=== PATIENT | female | born 1985 | race Caucasian/White ===

== ENCOUNTER 2024-06-27 03:38 | Inpatient (IN) | payer MEDICAID ==
[~2024-06-27] VITALS: Ht 170.2 cm; Wt 108.6 kg
[2024-06-27] VITALS (8 sets, daily range): BP systolic 114–122; BP diastolic 40–78; PULSE 58–77; RESP 14–19; TEMP 98–98.2; O2SAT 93–99
--- NOTE | 2024-06-27 03:55 | ED.PDOC ---
HPI Comments 38-year-old female who came to ER for chest pains. Patient does have history of hypertension but has poor compliance to her medications. States she was asleep but she woke up suddenly about 30 minutes ago due to sudden onset chest pains, sharp, substernal, constant, radiating to her back, associated with shortness of breath. Persistence of chest pains prompted patient to come to the ER. Chief Complaint: Chest pain Time Seen by MD: 03:54 Reviewed Notes: Nurses Notes Allergies: Coded Allergies: Lidocaine (Verified Allergy, Unknown, 06/27/24) Morphine (Verified Allergy, Unknown, 06/27/24) Penicillins (Verified Allergy, Unknown, 06/27/24) Information Source: Patient Mode of Arrival: Ambulatory Severity: Moderate Timing: Minutes Duration: Since onset Prehospital treatment: None Location: Substernal Radiation: Back Quality: Sharp, Stabbing Onset: At Rest Cardiac Risk Factors: HTN PE Risk Factors: None Associated Signs and Symptoms: SOB Past Medical History PAST MEDICAL HISTORY: Asthma, HTN Surgical History: Denies all surgeries GENERAL INSPECTOR History: Denies all GENERAL INSPECTOR Hx Family History Family History: Reviewed,noncontributory to illness Social History Smoker: Non-Smoker Alcohol: Denies ETOH Use Drugs: Denies Drug Use Lives In: Home Constitutional: denies: chills, diaphoresis, fatigue, fever, malaise, sweats, weakness, others EENTM: denies: blurred vision, double vision, ear bleeding, ear discharge, ear drainage, ear pain, ear ringing, eye pain, eye redness, hearing loss, mouth pain, mouth swelling, nasal discharge, nose bleeding, nose congestion, nose pain, photophobia, tearing, throat pain, throat swelling, voice changes, others Respiratory: denies: cough, hemoptysis, orthopnea, SOB at rest, shortness of breath, SOB with excertion, stridor, wheezing, others Cardiovascular: reports: chest pain; denies: dizzy spells, diaphoresis, Dyspnea on exertion, edema, irregular heart beat, left arm pain, lightheadedness, p alpitations, PND, syncope, others Gastrointestinal: denies: abdomen distended, abdominal pain, blood streaked bowels, constipated, diarrhea, dysphagia, difficulty swallowing, hematemesis, melena, nausea, poor appetite, poor fluid intake, rectal bleeding, rectal pain, vomiting, others Genitourinary: denies: abnormal vagina bleeding, burning, dyspareunia, dysuria, flank pain, frequency, hematuria, incontinence, pain, , vagina discharge, urgency, others Neurological: denies: dizziness, fainting, headache, left sided numbness, left sided weakness, numbness, paresthesia, pre-existing deficit, right sided numbness, right sided weakness, seizure, speech problems, tingling, tremors, weakness, others Musculoskeletal: reports: back pain; denies: gout, joint pain, joint swelling, muscle pain, muscle stiffness, neck pain, others Integumetry: denies: bruises, change in color, change in hair/nails, dryness, laceration, lesions, lumps, rash, wounds, others Allergic/Immunocompromised: denies: Difficulty Healing, Frequent Infections, Hives, Itching, others Hematologic/Lymphatic: denies: anemia, blood clots, easy bleeding, easy bruising, swollen glands, others Endocrine: denies: excessive hunger, excessive sweating, excessive thirst, excessive urination, flushing, intolerance to cold, intolerance to heat, unexplained weight gain, unexplained weight loss, others Psychiatric: denies: anxiety, bipolar disorder, depression, hopeless, panic disorder, schizophrenia, sleepless, suicidal, others Physical Exam General Appearance: No Apparent Distress, Normal HEENT: Normal ENT Inspection, Pharynx Normal, TMs Normal Neck: Full Range of Motion, Non-Tender, Normal, Normal Inspection Respiratory: Chest Non-Tender, Lungs Clear, No Accessory Muscle Use, No Respiratory Distress, Normal Breath Sounds Cardiovascular: No Edema, No JVD, No Murmur, No Gallop, Normal Peripheral Pulses, Regular Rate/Rhythm Breast Exam: Deferred Gastrointestinal: No Organomegaly, Non Tender, No Pulsatile Mass, Normal Bowel Sounds, Soft Genitalia: Deferred Pelvic: Deferred Rectal: Deferred Extremities: No calf tenderness, Normal capillary refill, Normal inspection, Normal range of motion, Non-tender, No pedal edema Musculoskeletal : Apperance: Normal Neurologic: Alert, inbound telemarketer II-XII nml as Tested, No Motor Deficits, Normal Affect, Normal Mood, No Sensory Deficits Cerebellar Function: Normal Reflexes: Normal Skin: Dry, Normal Color, Warm Lymphatic: No Adenopathy Was a procedure done? Was a procedure done?: No CP Differential Dx Differential Diagnosis: Angina, Anxiety / Panic Attack, Hyperventilation Differential Diagnosis: Angina, Chest Wall Pain, Costochondritis, Esophageal reflux/spasm, Gastritis, Myocardial Infarction, Pneumonia X-Ray, Labs, Meds, VS Vital Signs Date Time Temp Pulse Resp B/P (MAP) Pulse Ox O2 Delivery O2 Flow Rate FiO2 06/27/24 04:56 71 06/27/24 04:10 98.3 77 16 140/81 (100) 97 98.3 06/27/24 04:10 77 18 97 Room Air* 0 21 06/27/24 03:45 68 06/27/24 03:38 98.4 85 25 147/77 (100) 97 Lab Test 06/27/24 04:57 06/27/24 03:49 Range/Units Troponin I High Sensitivity 7 8 </=34 ng/L White Blood Count 11.9 H 4.4-10.8 10^3/uL Red Blood Count 4.88 4.0-5.20 10^6/uL Hemoglobin 14.4 12.2-16.2 g/dL Hematocrit 43.7 36.0-46.0 % Mean Corpuscular Volume 89.4 80.0-100.0 fL Mean Corpuscular Hemoglobin 29.4 28.0-32.0 pg Mean Corpuscular Hemoglobin Concent 32.9 32.0-36.0 g/dL Red Cell Distribution Width 14.4 H 11.8-14.3 % Platelet Count 305 140-450 10^3/uL Mean Platelet Volume 8.2 6.9-10.8 fL Neutrophils (%) (Auto) 60.5 37.0-80.0 % Lymphocytes (%) (Auto) 30.9 10.0-50.0 % Monocytes (%) (Auto) 6.2 0.0-12.0 % Eosinophils (%) (Auto) 1.8 0.0-7.0 % Basophils (%) (Auto) 0.6 0.0-2.0 % Neutrophils # (Auto) 7.2 1.6-8.6 10 ^3/uL Lymphocytes # (Auto) 3.7 0.4-5.4 10 ^3/uL Monocytes # (Auto) 0.7 0-1.3 10 ^3/uL Eosinophils # (Auto) 0.2 0-0.8 10 ^3/uL Basophils # (Auto) 0.1 0-0.2 10 ^3/uL Nucleated Red Blood Cells 0.1 % Sodium Level 142 136-145 mmol/L Potassium Level 4.2 3.5-5.1 mmol/L Chloride Level 111 H 98-107 mmol/L Carbon Dioxide Level 26 20-31 mmol/L Anion Gap 5 5-15 Blood Urea Nitrogen 12 9-23 mg/dL Creatinine 0.85 0.550-1.02 mg/dL Glomerular Filtration Rate Calc 90 >90 mL/min BUN/Creatinine Ratio 14.1 10.0-20.0 Serum Glucose 98 74-106 mg/dL Calcium Level 9.5 8.7-10.4 mg/dL Lipase 31 12-53 U/L Current Medications Medications (Trade) Dose Ordered Sig/Lawanda Route Start Time Stop Time Status Last Admin Ondansetron HCl (Zofran) 4 mg ONCE ONCE IV 06/27/24 04:30 06/27/24 04:31 DC 06/27/24 04:44 Pantoprazole Sodium (Protonix) 40 mg ONCE ONCE IV 06/27/24 04:30 06/27/24 04:31 DC 06/27/24 04:44 Ketorolac Tromethamine (Toradol Injection) 15 mg ONCE ONCE IV 06/27/24 04:30 06/27/24 04:31 DC 06/27/24 04:44 Time of 1ST Reevaluation: 03:52 Reevaluation 1ST: Unchanged Patient Education/Counseling: Diagnosis, Treatment Family Education/Counseling: No Family Present Departure 1 Departure Time of Disposition: 05:34 (Patient presented with chest pain that was concerning for possible STEMI, ACS, PE, Pneumonia, Muscle Strain, COPD, Dissection. Data: 1. I ordered and reviewed the result of at least 3 labs including a CBC, BMP, and Troponin. 2. I independently interpreted the following tests: EKG which shows sinus rhythm and Chest X-ray which shows benign chest.Risk:This patient has a high risk of morbidity due to further diagnostic testing or treatment and may suffer from an acute cardiac or respiratory disorder. Workup reveals concern for ACS and patient should be admitted for further workup and possible expert consultation. ) Impression: Primary Impression: Acute chest pain Disposition: ADMITTED INPATIENT Admit to: Med Surg Condition: Serious Critical Care Note Critical Care Time?: Yes (35 min-critical care time only) Critical care comment: Acute chest pain Authorized and Performed by: Kaya Larry MD Total critical care time: Approximately 34 minutes Due to a high probability of clinically significant, life threatening deterioration, the patient required my highest level of preparedness to intervene emergently and I personally spent this critical care time directly and personally managing the patient. This critical care time included obtaining a history; examining the patient; pulse oximetry; ordering and review of studies; arranging urgent treatment with development of a management plan; evaluation of patient's response to treatment; frequent reassessment; and, discussions with other providers. This critical care time was performed to assess and manage the high probability of imminent, life-threatening deterioration that could result in multi-organ failure. It was exclusive of separately billable procedures and treating other patients and teaching time. Please see my other sections and the rest of the note for further information on patient assessment and treatment. Stability Stability form required: No Heart Score Heart Score: Heart Score Response (Comments) Value History Slightly Suspicious 0 EKG Normal 0 Age <45 0 Risk Factors 1 or 2 risk factors 1 Troponin Normal limit 0 Total 1 I personally scribed for KAYA LARRY MD ([email or web address]) on 06/27/24 at 03:55. Electronically submitted by Demetrius Mera ([email or web address]). KAYA LARRY MD Jun 27, 2024 03:55
[2024-06-27 04:00] LABS: Basophils # (auto) 0.1 10 ^3/uL (0-0.2); Basophils % (auto) 0.6 % (0.0-2.0); Eosinophils # (auto) 0.2 10 ^3/uL (0-0.8); Eosinophils % (auto) 1.8 % (0.0-7.0); Hematocrit 43.7 % (36.0-46.0); Hemoglobin 14.4 g/dL (12.2-16.2); Lymphocytes # (auto) 3.7 10 ^3/uL (0.4-5.4); Lymphocytes % (auto) 30.9 % (10.0-50.0); Mean Corpuscular Hemoglobin 29.4 pg (28.0-32.0); Mean Corpuscular Hgb Conc. 32.9 g/dL (32.0-36.0); Mean Corpuscular Volume 89.4 fL (80.0-100.0); Monocytes # (auto) 0.7 10 ^3/uL (0-1.3); Monocytes % (auto) 6.2 % (0.0-12.0); Neutrophils # (auto) 7.2 10 ^3/uL (1.6-8.6); Neutrophils % (auto) 60.5 % (37.0-80.0); Nucleated Red Blood Cells % 0.1 %; Platelet Count (auto) 305 10^3/uL (140-450); Red Blood Cells 4.88 10^6/uL (4.0-5.20); Red Cell Distribution Width 14.4 % (11.8-14.3); White Blood Cell 11.9 10^3/uL (4.4-10.8)
[2024-06-27 04:30] LABS: Chloride 111 mmol/L (98-107); Potassium 4.2 mmol/L (3.5-5.1); Sodium 142 mmol/L (136-145)
[2024-06-27 04:32] LABS: Anion Gap 5 (5-15); Calcium 9.5 mg/dL (8.7-10.4); Carbon Dioxide 26 mmol/L (20-31)
[2024-06-27 04:37] LABS: BUN/Creatinine Ratio 14.1 (10.0-20.0); Blood Urea Nitrogen 12 mg/dL (9-23); Glucose 98 mg/dL (74-106); Lipase 31 U/L (12-53)
[2024-06-27] MEDS: ONDANSETRON HCL 4 MG/2 ML VIAL IV ONE (04:44)
[2024-06-27] MEDS: KETOROLAC TROMETH 30 MG/ML 1ML VIAL IV ONE (04:44)
[2024-06-27] MEDS: PANTOPRAZOLE 40 MG/10 ML VIAL INJ IV ONE (04:44)
--- NOTE | 2024-06-27 05:29 | DVH ---
CHEST RADIOGRAPH Indication:chest pain Technique: Frontal and lateral view of the chest was obtained Comparison: None FINDINGS: Lines and Tubes: None Lungs: Clear Pleura: No effusion. No pneumothorax. Cardiomediastinal contours: Unremarkable Bones: Unremarkable IMPRESSION: No evidence of acute disease.
[2024-06-27] MEDS ORDERED: HYDROcodone-ACET 5/325MG TAB PO PRN (05:45)
[2024-06-27] MEDS ORDERED: NITROGLYCERIN 0.4 MG SL TAB SL PRN (05:45)
[2024-06-27] MEDS ORDERED: ONDANSETRON HCL 4 MG/2 ML VIAL IV PRN (05:45)
[2024-06-27] MEDS ORDERED: DOCUSATE SOD 100 MG CAP PO PRN (05:45)
[2024-06-27] MEDS: SODIUM CHLOR 0.9% PF (SALINE LOCK) 10ML VIAL/SYR IV SCH (06:06)
--- NOTE | 2024-06-27 06:06 | DVHHP2 ---
History of Present Illness Reason for Visit: Acute chest pain History of Present Illness The patient is a 38-year-old female with past medical history of asthma and hypertension who presented to [facility] ED with complaint of acute chest pain. Patient reports she was sleeping and suddenly wake up about 30 minutes ago due to onset chest pain, sharp, substernal, constant, radiating to her back, associated with shortness of breath, getting worse that prompted this visit. Patient was seen and evaluated in the ED, laboratory data shows WBC 11.9, platelets 305, sodium 142, potassium 4.2, BUN 12, creatinine 0.85, glucose 98 troponin 7, lipase 31, blood pressure 140/81, pulse 77, temperature 98.3 F, O2 saturation 97% on room air. Chest x-ray show no evidence acute disease. On my assessment, patient denied chest pain at this moment, no dizziness, no diaphoresis, no shortness of breath, no nausea, no vomiting, no fever, no chills. Patient was admitted for further evaluation and medical management. Past Medical History Asthma, HTN Past Surgical History Denies all surgeries Family History Reviewed, noncontributory to the management of this case. Past Social History The patient lives at home, denies smoking, alcohol or illicit drugs abuse. Review of Systems Constitutional: No: Fever, Chills, Sweats, Weakness, Malaise, Other Eyes: No: Pain, Vision change, Conjunctivae inflammation, Eyelid inflammation, Other, Redness ENT: No: Ear pain, Ear discharge, Nose pain, Nose discharge, Nose congestion, Mouth pain, Mouth swelling, Throat pain, Throat swelling, Other Respiratory: No: Cough, Dry, Shortness of breath, SOB with excertion, Wheezing, Hemoptysis, Pleuritic Pain, Sputum, Wheezing, Other Cardiovascular: Chest Pain; No: Palpitations, Orthopnea, Paroxysmal Noc. Dyspnea, Edema, Lt Headedness, Other Gastrointestinal: No: Nausea, Vomiting, Abdominal Pain, Diarrhea, Constipation, Melena, Hematochezia, Other Genitourinary: No Dysuria, No Frequency, No Incontinence, No Hematuria, No Retention, No Other Musculoskeletal: back pain; No: other, neck pain, shoulder pain, arm pain, hand pain, leg pain, foot pain Skin: No: Rash, Lesions, Jaundice, Bruising, Other Neurological: No: Weakness, Numbness, Incoordination, Change in speech, Confusion, Seizures, Other Allergies: Coded Allergies: Lidocaine (Verified Allergy, Unknown, 06/27/24) Morphine (Verified Allergy, Unknown, 06/27/24) Penicillins (Verified Allergy, Unknown, 06/27/24) Exam Vital Signs Vital Signs Date Time Temp Pulse Resp B/P (MAP) Pulse Ox O2 Delivery O2 Flow Rate FiO2 06/27/24 04:56 71 06/27/24 04:10 98.3 16 140/81 (100) 97 98.3 06/27/24 04:10 Room Air* 0 21 General Appearance: Alert, Oriented X3, Cooperative, No acute distress HEENT: Atraumatic, PERRLA, EOMI, Mucous membr. moist/pink Respiratory: Clear to auscultation, Normal air movement Cardiovascular: Regular rate, Normal S1, Normal S2, No murmurs Abdominal: Normal bowel sounds, Soft, No tenderness, No hepatospenomegaly, No masses Extremities: No clubbing, No cyanosis, No edema, Normal pulses, No t enderness/swelling Skin: No rashes, No breakdown, No significant lesion Neuro: Normal speech, Normal tone, Sensation intact, Cranial nerves 3-12 NL, Reflexes 2+ Psych/Mental Status: Mental status NL, Mood NL Labs/Xrays Labs Test 06/27/24 04:57 06/27/24 03:49 Range/Units Troponin I High Sensitivity 7 </=34 ng/L White Blood Count 11.9 H 4.4-10.8 10^3/uL Red Blood Count 4.88 4.0-5.20 10^6/uL Hemoglobin 14.4 12.2-16.2 g/dL Hematocrit 43.7 36.0-46.0 % Mean Corpuscular Volume 89.4 80.0-100.0 fL Mean Corpuscular Hemoglobin 29.4 28.0-32.0 pg Mean Corpuscular Hemoglobin Concent 32.9 32.0-36.0 g/dL Red Cell Distribution Width 14.4 H 11.8-14.3 % Platelet Count 305 140-450 10^3/uL Mean Platelet Volume 8.2 6.9-10.8 fL Neutrophils (%) (Auto) 60.5 37.0-80.0 % Lymphocytes (%) (Auto) 30.9 10.0-50.0 % Monocytes (%) (Auto) 6.2 0.0-12.0 % Eosinophils (%) (Auto) 1.8 0.0-7.0 % Basophils (%) (Auto) 0.6 0.0-2.0 % Neutrophils # (Auto) 7.2 1.6-8.6 10 ^3/uL Lymphocytes # (Auto) 3.7 0.4-5.4 10 ^3/uL Monocytes # (Auto) 0.7 0-1.3 10 ^3/uL Eosinophils # (Auto) 0.2 0-0.8 10 ^3/uL Basophils # (Auto) 0.1 0-0.2 10 ^3/uL Nucleated Red Blood Cells 0.1 % Sodium Level 142 136-145 mmol/L Potassium Level 4.2 3.5-5.1 mmol/L Chloride Level 111 H 98-107 mmol/L Carbon Dioxide Level 26 20-31 mmol/L Anion Gap 5 5-15 Blood Urea Nitrogen 12 9-23 mg/dL Creatinine 0.85 0.550-1.02 mg/dL Glomerular Filtration Rate Calc 90 >90 mL/min BUN/Creatinine Ratio 14.1 10.0-20.0 Serum Glucose 98 74-106 mg/dL Calcium Level 9.5 8.7-10.4 mg/dL Lipase 31 12-53 U/L PATIENT: SATISH HARDY ACCT: [id number] UNIT: [id number] : 1985 LOC: ER ROOM / BED: / AGE / SEX: 38 / F ADM STATUS: REG ER SERVICE 0345 ORDERING PHYSICIAN: KAYA HERNANDEZ MD PROCEDURE(s): CXR2 - CHEST TWO VIEWS ROUTINE REASON: chest pain ORDER NUMBER(s): [id number], ACCESSION NUMBER(s): [id number] CHEST RADIOGRAPH Indication:chest pain Technique: Frontal and lateral view of the chest was obtained Comparison: None FINDINGS: Lines and Tubes: None Lungs: Clear Pleura: No effusion. No pneumothorax. Cardiomediastinal contours: Unremarkable Bones: Unremarkable IMPRESSION: No evidence of acute disease. Assessment/Plan Assessment/Plan Acute chest pain Plan discussed with: Patient, Other (RN) My Orders Orders - CONSTANTIN WOODARD DNP Procedure Category Date Status Time Troponin-I Hs LAB 06/27/24 Verified 05:39 Pantoprazole PHA 06/27/24 Verified (Protonix) 10:00 Aspirin Tablet [facility] 06/27/24 Verified 10:00 Admit ADMIT 06/27/24 Verified 05:39 Allergies [facility] 06/27/24 Verified 05:39 Code Status CODE 06/27/24 Verified 05:39 Sodium Chloride Lock PHA 06/27/24 Verified (Saline Lock Ns) 06:00 Oxygen Per Hour RT 06/27/24 Verified 05:39 Hydrocodone-Acet [facility] 06/27/24 Verified 5/325mg Tab (Isabella 05:45 Ondansetron Hcl [facility] 06/27/24 Verified (Zofran) 05:45 Docusate Sodium [facility] 06/27/24 Verified Capsule (Colace 05:45 Complete Blood Count LAB 06/28/24 Verified 04:00 Comprehensive LAB 06/28/24 Verified Metabolic Panel 04:00 Cardiac DIET 06/27/24 Verified Diet-2gna,Lofat,Lochol Breakfast Condition: Serious [facility] 06/27/24 Verified 05:39 Acetaminophen Tablet [facility] 06/27/24 Verified (Tylenol Tablet) 05:45 Bedrest With Bathroom [facility] 06/27/24 Verified Privileg 05:39 Sequential [facility] 06/27/24 Verified Compression Device Nitroglycerin [facility] 06/27/24 Verified Sublingual (Ntrostat 05:45 Notify Of Changes [facility] 06/27/24 Verified From Base 05:39 Stove Mounter For [facility] 06/27/24 Verified 24 Hours 05:39 Emergency Dysrhythmia [facility] 06/27/24 Verified Protocol 05:39 Rhythm Strips Once [facility] 06/27/24 Verified Every Shift 05:39 Oxygen By Nasal RT 06/27/24 Verified Cannula 05:39 Problem List: (1) Acute chest pain Date of Service: Jun 27, 2024 Billing Provider: CONSTANTIN WOODARD DNP Common Visit Codes: [id number] INP/OBS CARE (HIGH) CONSTANTIN WOODARD DNP Jun 27, 2024 06:06
--- NOTE | 2024-06-27 06:46 | ECG ---
[facility] Test Date: 2024-06-27 Test Time: 04:56:04 Pat Name: SATISH HARDY Department: ER Room: 0236T Gender: F Certified Hand Therapist: CÉSAR : 1985 Requested By: KAYA HERNANDEZ Order Number: [id number] Reading MD: Geovany Burk Measurements Intervals [place] Rate: 71 P: 67 [place]: 173 QRS: 69 QRSD: 88 T: 59 QT: 421 QTc: 458 Interpretive Statements Sinus rhythm Anteroseptal infarct, age indeterminate Electronically Signed On 06-27-2024 9:50:51 PDT by Geovany Burk Please click the below link to view image of tracing.
[2024-06-27] MEDS: PANTOPRAZOLE 40 MG/10 ML VIAL INJ IV SCH (10:58)
[2024-06-27] MEDS: ASPirin 81 mg TAB PO SCH (10:58)
--- NOTE | 2024-06-27 14:37 | DVHPN2 ---
Subjective History of Present Illness The patient is a 38-year-old female with past medical history of asthma and hypertension who presented to [facility] ED with complaint of acute chest pain. Patient reports she was sleeping and suddenly wake up about 30 minutes ago due to onset chest pain, sharp, substernal, constant, radiating to her back, associated with shortness of breath, getting worse that prompted this visit. Patient was seen and evaluated in the ED, laboratory data shows WBC 11.9, platelets 305, sodium 142, potassium 4.2, BUN 12, creatinine 0.85, glucose 98 troponin 7, lipase 31, blood pressure 140/81, pulse 77, temperature 98.3 F, O2 saturation 97% on room air. Chest x-ray show no evidence acute disease. On my assessment, patient denied chest pain at this moment, no dizziness, no diaphoresis, no shortness of breath, no nausea, no vomiting, no fever, no chills. Patient was admitted for further evaluation and medical management. Patient is very anxious,. Her chest pain still occurring but although much improved. Reviewed: H&P Changes from previous H/P or p: No Changes General: Per HPI Eyes: No Pain, No Vision change, No Conjunctivae inflammation, No Eyelid inflammation, No Other, No Redness ENT: No Ear pain, No Ear discharge, No Nose pain, No Nose discharge, No Nose congestion, No Mouth pain, No Mouth swelling, No Throat pain, No Throat swelling, No Other Cardiovascular: Chest Pain; No Palpitations, No Orthopnea, No Paroxysmal Noc. Dyspnea, No Edema, No Lt Headedness, No Other Respiratory: No Cough, No Dry, No Shortness of breath, No SOB with excertion, No Wheezing, No Hemoptysis, No Pleuritic Pain, No Sputum, No Other Gastrointestinal: No Nausea, No Vomiting, No Abdominal Pain, No Diarrhea, No Constipation, No Melena, No Hematochezia, No Other Genitourinary: No Dysuria, No Frequency, No Incontinence, No Hematuria, No Retention, No Other Musculoskeletal: No other, No neck pain, No shoulder pain, No arm pain; back pain; No hand pain, No leg pain, No foot pain Skin: No Rash, No Lesions, No Jaundice, No Bruising, No Other Objective Vitals Vital Signs Date Time Temp Pulse Resp B/P (MAP) Pulse Ox O2 Delivery O2 Flow Rate FiO2 11/1/24 12:58 58 06/27/24 12:30 98.1 19 114/58 (76) 97 98.1 06/27/24 09:00 Room Air* 0 21 Exam GEN: Healthy appearing, well-developed, very anxious, mild distress HEENT: NC/AT; MMM. CV: RRR, no m/r/g. LUNGS: Wheezing on all lung pratt ABD: Soft, NT/ND, NBS, no masses or organomegaly. EXT: skin Warm, well perfused. no rashes. No clubbing, cyanosis, or edema. NEURO: Ambulating with no limitations. No focal deficits. Medications Current Medications Medications Dose Ordered Sig/Lawanda Route Start Time Stop Time Status Last Admin Dose Admin Pantoprazole Sodium 40 mg DAILY IV 06/27/24 10:00 Aspirin 81 mg DAILY PO 06/27/24 10:00 06/27/24 10:58 81 MG Sodium Chloride 10 ml Q8HR IV 06/27/24 06:00 06/27/24 06:06 10 ML Acetaminophen/ Hydrocodone Bitart 1 tab Q4HP PRN PO 06/27/24 05:45 Ondansetron HCl 4 mg Q4HP PRN IV 06/27/24 05:45 Docusate Sodium 100 mg BIDPRN PRN PO 06/27/24 05:45 Acetaminophen 650 mg Q6HP PRN PO 06/27/24 05:45 Nitroglycerin 0.4 mg Q5MINP PRN SL 06/27/24 05:45 Laboratory Results Laboratory Tests 06/27/24 03:49 Chemistry Test 06/27/24 03:49 Calcium Level 9.5 mg/dL (8.7-10.4) Lipid panel Test 06/27/24 03:49 Lipase 31 U/L (12-53) Labs and/or images reviewed: Labs reviewed by me, Image(s) reviewed by me Assessment/Plan Assessment/Plan asthma exacerbation (wheezing on exam) coughing ?viral pneumonia -test covid flu - masks for visitors nurses chest pain Tn neg, lipase neg, ekg neg - echo to r/o card etio chest pain - asthma? vs msk pain? - trial baclofen, nsaids diet - reg gi ppx - diet dvt ppx - OOB tele Plan discussed with: Patient Date of Service: Jun 27, 2024 Billing Provider: REYMUNDO BROWN MD Common Visit Codes: [id number] INP/OBS CARE(HIGH) REYMUNDO BROWN MD Jun 27, 2024 14:37
[2024-06-27] MEDS: methylPREDNISolone SOD SUCC 125 MG/2 ML VL IV ONE (15:45)
[2024-06-27 15:49] LABS: COVID19 ANTIGEN SOFIA FIA NEGATIVE (NEGATIVE)
[2024-06-27] MEDS: IBUPROFEN 400 MG TAB PO SCH (15:49)
[2024-06-27 15:50] LABS: Rapid Influenza A Negative (Negative); Rapid Influenza B Negative (Negative)
--- NOTE | 2024-06-27 15:57 | DVHSR ---
APPROVED REPORT EXAM: Two-dimensional and M-mode echocardiogram with Doppler and color Doppler. Blood Pressure: 114/58 mmHg INDICATION Chest Pain RISK FACTORS Height: 5'7", Weight: 233 DIMENSIONS LVDd5.3 (3.8-5.7cm)LA (2D)3.5 (1.9-4.0cm)Aortic Root3.2 (2.0-3.7cm) LVDs3.7 (2.5-4.0cm)LA (MM) (1.9-4.0cm)Aortic Cusp Exc1.8 (1.5-2.0cm) EF (%) 55.0 (55-70%)Rt. Atrium3.4 (1.9-4.0cm)Asc. Aorta cm IVSd0.8 (0.7-1.1cm)RV (D) (1.8-2.4cm) PWd1.0 (0.7-1.1cm) Mitral Valve MitralMitral Stenosis E wave1.31m/sMV Mean GR.mmHg A wave0.96m/sMV Peak GR.mmHg E/A ratio1.42D MVAcm2 DECEL [id number] 1/2 Timems Aortic Valve Aortic ValveAortic Stenosis V11.04m/Álvaro Mean GR.4mmHg V21.31m/Álvaro Peak GR.7mmHg LVOT Diameter2.0 (1.8-2.4cm)Doppler AVA2.49cm2 Other Information Technically limited study due to body habitus. Conclusion Normal left ventricular size and dimension. Normal left ventricular systolic function estimated ejec tion fraction 55%. There is a grade 1 diastolic dysfunction. Normal right ventricular size and dimension. Normal right ventricular systolic function. Normal biatrial size and dimension. Normal aortic valve structure and function. Normal mitral valve structure and function. Normal tricuspid valve structure and function. The pulmonary valve is grossly normal. No pericardial effusion.
--- NOTE | 2024-06-27 17:29 | DVHINCON2 ---
Date of service: Jun 27, [address] Zane Redd Reason for Consultation Medication management and disposition. History of Present Illness Chief complaint: "I just started having bad pain in my chest". History of present illness: This is a 38 year female who was seen for evaluation via telepsychiatry. Patient reported that she has been feeling more depressed lately. Patient reported having trouble sleeping, energy low, has trouble content, appetite decreased and she feels hopeless and worthless she denied any suicidal or homicidal she denied any auditory or visual hallucination she reported feeling very anxious. Past psychiatric history: Patient reported two previous inpatient psychiatric hospitalization. Patient reported that she has been diagnosed with depression. She denied any suicide attempts in the past. Past Medical History As per history and physical. Past Surgical History As per history and physical. Family History: Patient reports no known family medical history. Family History She reported that her father had schizophrenia and her son has some mental health issues. Social History Patient is single and has three children. Patient reported having college education. 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 Allergies: Coded Allergies: Lidocaine (Verified Allergy, Unknown, 06/27/24) Morphine (Verified Allergy, Unknown, 06/27/24) Penicillins (Verified Allergy, Unknown, 06/27/24) Home Meds No Active Prescriptions or Reported Meds Current Medications Current Medications Medications (Trade) Dose Ordered Sig/Lawanda Route PRN Reason Start Time Stop Time Status Last Admin Pantoprazole Sodium (Protonix) 40 mg DAILY IV 06/27/24 10:00 Aspirin 81 mg DAILY PO 06/27/24 10:00 06/27/24 10:58 Sodium Chloride (Saline Lock Ns) 10 ml Q8HR IV 06/27/24 06:00 06/27/24 15:50 Acetaminophen/ Hydrocodone Bitart ([place] 5/325MG Tab) 1 tab Q4HP PRN PO MODERATE PAIN (4-6 PAIN SCALE) 06/27/24 05:45 Ondansetron HCl (Zofran) 4 mg Q4HP PRN IV NAUSEA / VOMITING 06/27/24 05:45 Docusate Sodium (Colace Capsule) 100 mg BIDPRN PRN PO FOR CONSTIPATION 06/27/24 05:45 Acetaminophen (Tylenol Tablet) 650 mg Q6HP PRN PO PAIN SCALE 1-3 OR TEMP>100.4 06/27/24 05:45 Nitroglycerin (Ntrostat Sublingual) 0.4 mg Q5MINP PRN SL FOR CHEST PAIN 06/27/24 05:45 Baclofen (Liorisal Tablet) 5 mg Q8HR PO 06/27/24 22:00 Ibuprofen (Motrin Tablet) 400 mg Q8H PO 06/27/24 14:45 06/28/24 16:00 06/27/24 15:49 Alprazolam (Xanax Tablet) 0.25 mg Q8HPRN PRN PO anxiety 06/27/24 14:45 Review of Systems Review of systems is negative except HPI. Vital Signs Vital Signs Date Time Temp Pulse Resp B/P (MAP) Pulse Ox O2 Delivery O2 Flow Rate FiO2 06/27/24 17:00 98.0 58 19 117/78 (91) 99 98.0 06/27/24 09:00 Room Air* 0 21 Physical Exam Mental status examination: This is a 38 year female who appears to be of her stated age. Her grooming is fair. Patient was cooperative but did not and is very tearful. Her speech is soft. She describes mood as "I do not know, I am okay" and her affect is constricted. She denied any suicidal or homicidal ideation. She denied any auditory or visual hallucination. Her thought process is circumstantial. She is oriented to time, place and person. Her attention and concentration slightly impaired. Her memory and language intact. Her judgment and insight is limited. Her impulse control is fair. Her fund of knowledge is intact. Labs/Diagnostic Data Labs Test 06/27/24 15:15 06/27/24 06:52 06/27/24 03:49 Range/Units Influenza Type A Antigen Negative Negative Influenza Type B Antigen Negative Negative SARS-CoV-2 Antigen (Rapid) Negative NEGATIVE Troponin I High Sensitivity 7 </=34 ng/L White Blood Count 11.9 H 4.4-10.8 10^3/uL Red Blood Count 4.88 4.0-5.20 10^6/uL Hemoglobin 14.4 12.2-16.2 g/dL Hematocrit 43.7 36.0-46.0 % Mean Corpuscular Volume 89.4 80.0-100.0 fL Mean Corpuscular Hemoglobin 29.4 28.0-32.0 pg Mean Corpuscular Hemoglobin Concent 32.9 32.0-36.0 g/dL Red Cell Distribution Width 14.4 H 11.8-14.3 % Platelet Count 305 140-450 10^3/uL Mean Platelet Volume 8.2 6.9-10.8 fL Neutrophils (%) (Auto) 60.5 37.0-80.0 % Lymphocytes (%) (Auto) 30.9 10.0-50.0 % Monocytes (%) (Auto) 6.2 0.0-12.0 % Eosinophils (%) (Auto) 1.8 0.0-7.0 % Basophils (%) (Auto) 0.6 0.0-2.0 % Neutrophils # (Auto) 7.2 1.6-8.6 10 ^3/uL Lymphocytes # (Auto) 3.7 0.4-5.4 10 ^3/uL Monocytes # (Auto) 0.7 0-1.3 10 ^3/uL Eosinophils # (Auto) 0.2 0-0.8 10 ^3/uL Basophils # (Auto) 0.1 0-0.2 10 ^3/uL Nucleated Red Blood Cells 0.1 % Sodium Level 142 136-145 mmol/L Potassium Level 4.2 3.5-5.1 mmol/L Chloride Level 111 H 98-107 mmol/L Carbon Dioxide Level 26 20-31 mmol/L Anion Gap 5 5-15 Blood Urea Nitrogen 12 9-23 mg/dL Creatinine 0.85 0.550-1.02 mg/dL Glomerular Filtration Rate Calc 90 >90 mL/min BUN/Creatinine Ratio 14.1 10.0-20.0 Serum Glucose 98 74-106 mg/dL Calcium Level 9.5 8.7-10.4 mg/dL Lipase 31 12-53 U/L Assessment Patient with a diagnosis of major depressive disorder recurrent moderate and anxiety disorder not otherwise specified. Plan/Recommendation I will start her on Effexor XR 37.5 mg p.o. daily. We will continue her p.r.n. alprazolam. Patient can follow up with outpatient psychiatric level of care. Care was coordinated with the patient and her RN. Plan discussed with: Patient CIPRIANO LUNSFORD MD Jun 27, 2024 17:29
[2024-06-27] MEDS: ALPRAZolam 0.25 MG TAB PO PRN (18:12)
[2024-06-27] MEDS: ACETAMINOPHEN 325 MG TAB PO PRN (18:12)
[2024-06-27] MEDS: BACLOFEN 10 MG TAB PO SCH (20:43)
--- NOTE | 2024-06-27 22:54 | DVHPN2 ---
Subjective 06/27-patient very anxious today. She calms down when visit starts and is reassured that care is being taken. She has a dry cough, possibly chills. She has wheezing on exam. She describes the pain started with a popping feeling on the left side of her chest which felt from front chest to the back. No sick contacts. 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 She has been using her father is rescue inhaler. Reviewed: H&P Changes from previous H/P or p: No Changes Musculoskeletal: No other, No neck pain, No shoulder pain, No arm pain; back pain; No hand pain, No leg pain, No foot pain Skin: No Rash, No Lesions, No Jaundice, No Bruising, No Other Objective Vitals Vital Signs Date Time Temp Pulse Resp B/P (MAP) Pulse Ox O2 Delivery O2 Flow Rate FiO2 06/27/24 21:43 98.6 06/27/24 21:00 73 18 122/63 (82) 93 06/27/24 20:00 Room Air* 0 21 Exam GEN: Healthy appearing, well-developed, patient is very anxious HEENT: NC/AT; MMM. CV: RRR, no m/r/g. LUNGS: Faint but diffuse wheezing in all lung pratt ABD: Soft, NT/ND, NBS, no masses or organomegaly. EXT: skin Warm, well perfused. no rashes. No clubbing, cyanosis, or edema. NEURO: Ambulating with no limitations. No focal deficits. Medications Current Medications Medications Dose Ordered Sig/Lawanda Route Start Time Stop Time Status Last Admin Dose Admin Pantoprazole Sodium 40 mg DAILY IV 06/27/24 10:00 Aspirin 81 mg DAILY PO 06/27/24 10:00 06/27/24 10:58 81 MG Sodium Chloride 10 ml Q8HR IV 06/27/24 06:00 06/27/24 22:00 10 ML Acetaminophen/ Hydrocodone Bitart 1 tab Q4HP PRN PO 06/27/24 05:45 Ondansetron HCl 4 mg Q4HP PRN IV 06/27/24 05:45 Docusate Sodium 100 mg BIDPRN PRN PO 06/27/24 05:45 Acetaminophen 650 mg Q6HP PRN PO 06/27/24 05:45 06/27/24 18:12 650 MG Nitroglycerin 0.4 mg Q5MINP PRN SL 06/27/24 05:45 Baclofen 5 mg Q8HR PO 06/27/24 22:00 06/27/24 20:43 5 MG Ibuprofen 400 mg Q8H PO 06/27/24 14:45 06/28/24 16:00 06/27/24 20:43 400 MG Alprazolam 0.25 mg Q8HPRN PRN PO 06/27/24 14:45 06/27/24 18:12 0.25 MG Venlafaxine HCl 37.5 mg DAILY PO 06/28/24 10:00 Laboratory Results Laboratory Tests 06/27/24 03:49 Chemistry Test 06/27/24 03:49 Calcium Level 9.5 mg/dL (8.7-10.4) Lipid panel Test 06/27/24 03:49 Lipase 31 U/L (12-53) Labs and/or images reviewed: Labs reviewed by me, Image(s) reviewed by me Assessment/Plan Assessment/Plan 06/27-patient very anxious today. She calms down when visit starts and is reassured that care is being taken. She has a dry cough, possibly chills. She has wheezing on exam. She describes the pain started with a popping feeling on the left side of her chest which felt from front chest to the back. No sick contacts. 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 She has been using her father is rescue inhaler. #asthma exacerbation (wheezing on exam) coughing #?viral pneumonia -test covid flu - masks for visitors nurses #chest pain Tn neg, lipase neg, ekg neg - asthma? vs msk pain? - trial baclofen, nsaids - echo to r/o card etio #Anxiety -patient very anxious prior to exam. - telepsych consult Xanax p.r.n. diet - reg gi ppx - diet dvt ppx - OOB tele Plan discussed with: Patient My Orders Orders - REYMUNDO BROWN MD Procedure Category Date Status Time Baclofen Tablet PHA 06/27/24 In Process (Liorisal Tablet) 22:00 Ibuprofen Tablet PHA 06/27/24 In Process (Motrin Tablet) 14:45 Echo 2d Mode Cardiac US 06/27/24 Resulted DOP 14:40 Alprazolam Tablet PHA 06/27/24 In Process (Xanax Tablet) 14:45 Soc Telemed Psych CONS 06/27/24 Transmitted Consult 14:43 Consult For Nutrition NOURISH 06/27/24 Transmitted 18:25 Date of Service: Jun 27, 2024 Billing Provider: REYMUNDO BROWN MD Common Visit Codes: [id number] INP/OBS CARE(HIGH) REYMUNDO BROWN MD Jun 27, 2024 22:54
[2024-06-28] VITALS (10 sets, daily range): BP systolic 111–153; BP diastolic 57–80; PULSE 67–100; RESP 16–18; TEMP 97.5–98.3; O2SAT 92–100
[2024-06-28 05:39] LABS: Basophils # (auto) 0 10 ^3/uL (0-0.2); Basophils % (auto) 0.1 % (0.0-2.0); Eosinophils # (auto) 0 10 ^3/uL (0-0.8); Hematocrit 41.5 % (36.0-46.0); Hemoglobin 13.9 g/dL (12.2-16.2); Lymphocytes # (auto) 1.2 10 ^3/uL (0.4-5.4); Lymphocytes % (auto) 11.5 % (10.0-50.0); Mean Corpuscular Hemoglobin 29.9 pg (28.0-32.0); Mean Corpuscular Hgb Conc. 33.6 g/dL (32.0-36.0); Monocytes # (auto) 0.2 10 ^3/uL (0-1.3); Monocytes % (auto) 2.2 % (0.0-12.0); Neutrophils % (auto) 86.2 % (37.0-80.0); Platelet Count (auto) 280 10^3/uL (140-450); Red Blood Cells 4.66 10^6/uL (4.0-5.20); Red Cell Distribution Width 14.1 % (11.8-14.3); White Blood Cell 10.4 10^3/uL (4.4-10.8)
[2024-06-28 05:59] LABS: Alanine Aminotransferase 12 U/L (7-40); Albumin 4.3 g/dL (3.2-4.8); Alkaline Phosphatase 77 U/L (46-116); Anion Gap 7 (5-15); Aspartate Aminotransferase 9 U/L (13-40); BUN/Creatinine Ratio 15.5 (10.0-20.0); Blood Urea Nitrogen 13 mg/dL (9-23); Calcium 9.6 mg/dL (8.7-10.4); Carbon Dioxide 24 mmol/L (20-31); Chloride 109 mmol/L (98-107); Glucose 148 mg/dL (74-106); Sodium 140 mmol/L (136-145)
[2024-06-28 06:00] LABS: Bilirubin, Total 0.5 mg/dL (0.2-1.0); Total Protein 7.2 g/dL (5.7-8.2)
[2024-06-28] MEDS: VENLAFAXINE HCL 37.5mg XR cap PO SCH (10:32)
[2024-06-28] MEDS: IPRATROPIUM BROM 0.5 MG/2.5ML INH SOL NEB SCH (10:46)
[2024-06-28] MEDS: ALBUTEROL SULF 2.5 MG/0.5ML(0.5%) NEB SOLN NEB SCH (10:46)
[2024-06-28] MEDS ORDERED: ALBUAER3 IN (13:14)
[2024-06-28] MEDS ORDERED: IBUP1TAB5 PO (13:14)
[2024-06-28] MEDS ORDERED: BUDE1AER5 IN (13:14)
[2024-06-28] MEDS ORDERED: PRED20TA2 PO (13:14)
[2024-06-28] MEDS ORDERED: FAMO20TA10 PO (13:14)
[2024-06-28] MEDS ORDERED: ALBU0.084 NEB (13:14)
[2024-06-28] MEDS ORDERED: ALPR0.5T PO (13:14)
[2024-06-28] MEDS ORDERED: CYCL-611 PO (13:14)
--- NOTE | 2024-06-28 13:17 | DVHDS2 ---
Discharge Summary Date of Admission Jun 27, 2024 at 05:39 Date of Discharge: Jun 28, 2024 Labs/Diagnostic Data: Laboratory Results Test 06/28/24 04:59 06/27/24 15:15 06/27/24 06:52 06/27/24 03:49 White Blood Count 10.4 10^3/uL (4.4-10.8) Red Blood Count 4.66 10^6/uL (4.0-5.20) Hemoglobin 13.9 g/dL (12.2-16.2) Hematocrit 41.5 % (36.0-46.0) Mean Corpuscular Volume 89.0 fL (80.0-100.0) Mean Corpuscular Hemoglobin 29.9 pg (28.0-32.0) Mean Corpuscular Hemoglobin Concent 33.6 g/dL (32.0-36.0) Red Cell Distribution Width 14.1 % (11.8-14.3) Platelet Count 280 10^3/uL (140-450) Mean Platelet Volume 8.6 fL (6.9-10.8) Neutrophils (%) (Auto) 86.2 % (37.0-80.0) Lymphocytes (%) (Auto) 11.5 % (10.0-50.0) Monocytes (%) (Auto) 2.2 % (0.0-12.0) Eosinophils (%) (Auto) 0.0 % (0.0-7.0) Basophils (%) (Auto) 0.1 % (0.0-2.0) Neutrophils # (Auto) 9.0 10 ^3/uL (1.6-8.6) Lymphocytes # (Auto) 1.2 10 ^3/uL (0.4-5.4) Monocytes # (Auto) 0.2 10 ^3/uL (0-1.3) Eosinophils # (Auto) 0 10 ^3/uL (0-0.8) Basophils # (Auto) 0 10 ^3/uL (0-0.2) Nucleated Red Blood Cells 0.0 % Sodium Level 140 mmol/L (136-145) Potassium Level 4.0 mmol/L (3.5-5.1) Chloride Level 109 mmol/L (98-107) Carbon Dioxide Level 24 mmol/L (20-31) Anion Gap 7 (5-15) Blood Urea Nitrogen 13 mg/dL (9-23) Creatinine 0.84 mg/dL (0.550-1.02) Glomerular Filtration Rate Calc 91 mL/min (>90) BUN/Creatinine Ratio 15.5 (10.0-20.0) Serum Glucose 148 mg/dL (74-106) Calcium Level 9.6 mg/dL (8.7-10.4) Total Bilirubin 0.5 mg/dL (0.2-1.0) Aspartate Amino Transferase (AST) 9 U/L (13-40) Alanine Aminotransferase (ALT) 12 U/L (7-40) Alkaline Phosphatase 77 U/L (46-116) Total Protein 7.2 g/dL (5.7-8.2) Albumin 4.3 g/dL (3.2-4.8) Influenza Type A Antigen Negative (Negative) Influenza Type B Antigen Negative (Negative) SARS-CoV-2 Antigen (Rapid) Negative (NEGATIVE) Troponin I High Sensitivity 7 ng/L (</=34) Lipase 31 U/L (12-53) Other Laboratory Tests 06/28/24 04:59 Brief Hx & Hospital Course: The patient is a 38-year-old female with past medical history of asthma and hypertension who presented to [facility] ED with complaint of acute chest pain. Patient reports she was sleeping and suddenly wake up about 30 minutes ago due to onset chest pain, sharp, substernal, constant, radiating to her back, associated with shortness of breath, getting worse that prompted this visit. EKG unconcerning, troponins negative, chest x-ray unconcerning, echo is normal EF 55%. Patient admitted for chest pain with ACS rule out. Hospitalist consulted. On exam patient is having faint expiratory wheeze in all lung pratt. Plan to start treatment for asthma exacerbation and also treat as muscle pain; We will do trial of baclofen with NSAIDs. For asthma treat with steroids and nebs. Next morning patient is feeling much improved. We will get a telepsych as patient is very anxious and start Xanax p.r.n.. Patient continues to improve this is likely musculoskeletal related pain. Patient can follow up with physicians outpatient as per plan below. diagnosis: chest pain without concern for ACS, Asthma exacerbation, viral syndrome, musculoskeletal pain Discharge plan - albuterol mdi (with albuterol neb if mdi fails) - symbicort daiy 1 puff - prednisone 40 daily x 5 days - flexiril 10 qhs x 7 days, ibuprofen 600 bid x 5 days, pepcid 20mg bid x 30days - f/u with PCP. PCP to help patient deal with anxiety. - missed work note to be given as discharge time - referral to pulm for asthma - conitnue other home medications Visitation and planning required 35 minutes Condition at Discharge: Fair Final Diagnosis/Problems List chest pain without concern for ACS, Asthma exacerbation, viral syndrome, musculoskeletal pain Discharge Disposition: Home Discharge Instruct/Medications Diet: Regular Activity: No Restrictions, As Tolerated Follow Up/Referral: PCP, Pulm Medications: as below Discharge Statement: "Patient was advised to return to the ER or call 911 if any headaches, dizziness, shortness of breath, chest pain, abdominal pain, bleeding, fevers, or worsening of medical condition. Patient was counseled about treatment plan, medications, possible side effects, patientverbalized understanding. All questions were answered to the best of my ability. This discharge took greater then 30 minutes in planning, reviewing documentation, counseling the patient, and discussing with other team members." ASSESSMENT ASSESSMENT Assessment chest pain without concern for ACS, Asthma exacerbation, viral syndrome, musculoskeletal pain Date of Service: Jun 28, 2024 Billing Provider: REYMUNDO BROWN MD Common Visit Codes: 66550-NUO/OBS DISCH DAY >30min REYMUNDO BROWN MD Jun 28, 2024 13:17
--- NOTE | 2024-06-30 12:18 | ECG ---
[facility] Test Date: 2024-06-27 Test Time: 03:45:47 Pat Name: SATISH HARDY Department: ER Room: 0236T A Gender: F Hospice Admitting Clerk: KEE : 1985 Requested By: KAYA HERNANDEZ Order Number: [id number] Reading MD: Geovany Burk Measurements Intervals [place] Rate: 68 P: 72 NC: 143 QRS: 73 QRSD: 79 T: 74 QT: 392 QTc: 417 Interpretive Statements Sinus rhythm Anterior infarct, old Electronically Signed On 07-03-2024 10:04:08 PST by Geovany Burk Please click the below link to view image of tracing.
== END 2024-06-28 15:30 | disposition home or self-care (01) | DRG 141 ==
LOC: ER 03:38 → TELE 05:39 → TELE-EAST 08:52
PROVIDERS: ADMIT Student in an Organized Health Care Education/Training Program; ATTEND Student in an Organized Health Care Education/Training Program
DX: J45.901 Unspecified asthma with (acute) exacerbation (principal); F33.1 Major depressive disorder, recurrent, moderate; R07.89 Other chest pain; I10 Essential (primary) hypertension; Z20.822 Contact with and (suspected) exposure to COVID-19; F41.9 Anxiety disorder, unspecified; B34.9 Viral infection, unspecified; Z88.0 Allergy status to penicillin; Z88.5 Allergy status to narcotic agent; Z81.8 Family history of other mental and behavioral disorders; Z88.4 Allergy status to anesthetic agent
CPT/HCPCS: 36415; 71046; 80048; 80053; 83690; 84484; 85025; 87426; 87804; 93005; 93306; 94640; 99291; G0378; J1885; J2405; J2470